=== PATIENT | male | born 1970 | race Two or more races ===

== ENCOUNTER 2018-02-22 17:01 | Inpatient (IN) | payer OTHER ==
[~2018-02-22] VITALS: Ht 182.9 cm; Wt 111.7 kg
[2018-02-22 18:38] LABS: Basophils # (auto) 0.1 uL; Basophils % (auto) 0.6 % (0.0-2.0); Eosinophils # (auto) 0.4 uL; Eosinophils % (auto) 4.2 % (0.0-7.0); Hematocrit 44.5 % (41.0-53.0); Hemoglobin 15.6 g/dL (13.5-17.5); Lymphocytes # (auto) 2.3 uL; Lymphocytes % (auto) 25.5 % (10.0-50.0); Mean Corpuscular Hemoglobin 30.6 pg (28.0-32.0); Mean Corpuscular Volume 87.4 fL (80.0-100.0); Monocytes # (auto) 0.6 uL; Monocytes % (auto) 7.2 % (0.0-12.0); Neutrophils # (auto) 5.7 uL; Neutrophils % (auto) 62.5 % (37.0-80.0); Nucleated Red Blood Cells % 0.1 %; Platelet Count (auto) 267 10^3/uL (140-450); Red Blood Cells 5.09 10^6/uL (4.5-5.90); Red Cell Distribution Width 13.7 % (11.8-14.3); White Blood Cell 9.1 10^3/uL (4.4-10.8)
[2018-02-22 18:57] LABS: Potassium 3.7 mmol/L (3.5-5.1)
[2018-02-22 19:00] LABS: Albumin 3.6 g/dL (3.4-5.0); BUN/Creatinine Ratio 13.1; Calcium 8.7 mg/dL (8.5-10.1)
[2018-02-22 19:04] LABS: Bilirubin, Total 1.1 mg/dL (0.2-1.0); Total Protein 7.2 g/dL (6.4-8.2)
[2018-02-22] MEDS ORDERED: PANTOPRAZOLE 40 MG/10 ML VIAL IV STA (19:04)
[2018-02-22] MEDS ORDERED: SODIUM CHLORIDE 0.9% 500 ML IVB ONE (19:04)
[2018-02-22 19:08] LABS: Urine Bacteria NONE SEEN /hpf (None Seen); Urine Blood Negative /uL (Negative); Urine Mucus FEW (None Seen); Urine Specific Gravity 1.018 (1.001-1.035); Urine WBC 4 /hpf (0 - 3)
[2018-02-22] MEDS ORDERED: ONDANSETRON HCL 4 MG/2 ML VIAL IV ONE (19:15)
[2018-02-22] MEDS ORDERED: MORPHINE SULFATE 4 MG/ML SYR/VIAL IV ONE (19:15)
[2018-02-22] MEDS ORDERED: ACETAMINOPHEN 500 MG TAB PO PRN (21:00)
[2018-02-22] MEDS: SODIUM CHLORIDE 0.9% 1,000 ML IV SCH (21:19)
[2018-02-22] MEDS ORDERED: METF1000 PO (23:14)
[2018-02-22] MEDS ORDERED: INSLANTI SC (23:14)
[2018-02-22] MEDS: MORPHINE SULF INJ 2 MG/ML SYRINGE 1ML IV PRN (23:18)
[2018-02-22] MEDS: ONDANSETRON HCL 4 MG/2 ML VIAL IV PRN (23:18)
[2018-02-23] VITALS (8 sets, daily range): BP systolic 126–139; BP diastolic 69–90
[2018-02-23] MEDS ORDERED: DEXTROSE (50%) 50ML SYRG IV PRN (00:15)
[2018-02-23 05:40] LABS: Basophils # (auto) 0.1 uL; Basophils % (auto) 0.7 % (0.0-2.0); Eosinophils # (auto) 0.4 uL; Eosinophils % (auto) 4.8 % (0.0-7.0); Hematocrit 42.6 % (41.0-53.0); Lymphocytes # (auto) 2.4 uL; Lymphocytes % (auto) 30.1 % (10.0-50.0); Mean Corpuscular Hemoglobin 30.8 pg (28.0-32.0); Mean Corpuscular Hgb Conc. 35.3 g/dL (32.0-36.0); Mean Corpuscular Volume 87.5 fL (80.0-100.0); Monocytes # (auto) 0.5 uL; Monocytes % (auto) 6.7 % (0.0-12.0); Neutrophils # (auto) 4.5 uL; Neutrophils % (auto) 57.7 % (37.0-80.0); Nucleated Red Blood Cells % 0.1 %; Platelet Count (auto) 211 10^3/uL (140-450); Red Blood Cells 4.87 10^6/uL (4.5-5.90); Red Cell Distribution Width 13.9 % (11.8-14.3); White Blood Cell 7.8 10^3/uL (4.4-10.8)
[2018-02-23 05:47] LABS: BUN/Creatinine Ratio 11.7; Calcium 8.1 mg/dL (8.5-10.1); Potassium 4.7 mmol/L (3.5-5.1)
[2018-02-23] MEDS: InsuLIN REG 1unit/0.01ml Soln (100units/ml) SC SCH ×3 (06:00→17:40)
[2018-02-23] MEDS: ACCU-CHEK COMFORT CURVE STRIP VI SCH ×3 (06:09→17:39)
[2018-02-23] MEDS: MORPHINE SULF INJ 2 MG/ML SYRINGE 1ML IV PRN ×3 (06:20→20:15)
[2018-02-23] MEDS: ONDANSETRON HCL 4 MG/2 ML VIAL IV PRN (08:57)
[2018-02-23] MEDS ORDERED: PANTOPRAZOLE 40 MG/10 ML VIAL IV ONE (11:15)
[2018-02-23] MEDS: SODIUM CHLORIDE 0.9% 1,000 ML IV SCH ×2 (20:43→23:40)
[2018-02-24] MEDS: ACCU-CHEK COMFORT CURVE STRIP VI SCH ×4 (00:06→18:15)
[2018-02-24 05:08] VITALS: BP 131/87
[2018-02-24] MEDS: InsuLIN REG 1unit/0.01ml Soln (100units/ml) SC SCH ×4 (06:00→18:16)
[2018-02-24 06:49] LABS: Basophils # (auto) 0 uL; Basophils % (auto) 0.6 % (0.0-2.0); Eosinophils # (auto) 0.3 uL; Eosinophils % (auto) 3.5 % (0.0-7.0); Hemoglobin 15.8 g/dL (13.5-17.5); Lymphocytes # (auto) 1.6 uL; Lymphocytes % (auto) 20.6 % (10.0-50.0); Mean Corpuscular Hemoglobin 30.7 pg (28.0-32.0); Mean Corpuscular Hgb Conc. 35.2 g/dL (32.0-36.0); Mean Corpuscular Volume 87.2 fL (80.0-100.0); Monocytes # (auto) 0.5 uL; Monocytes % (auto) 6.5 % (0.0-12.0); Neutrophils # (auto) 5.4 uL; Neutrophils % (auto) 68.8 % (37.0-80.0); Nucleated Red Blood Cells % 0.1 %; Platelet Count (auto) 231 10^3/uL (140-450); Red Blood Cells 5.16 10^6/uL (4.5-5.90); Red Cell Distribution Width 13.4 % (11.8-14.3); White Blood Cell 7.8 10^3/uL (4.4-10.8)
[2018-02-24 07:05] LABS: Albumin 3.5 g/dL (3.4-5.0); BUN/Creatinine Ratio 9.3; Bilirubin, Total 1.8 mg/dL (0.2-1.0); Calcium 8.2 mg/dL (8.5-10.1); Total Protein 6.9 g/dL (6.4-8.2)
[2018-02-24 07:12] LABS: INR 1.04 (0.9-1.15); Partial Thromboplastin Time 26.7 sec (23.78-33.04); Prothrombin Time 11.1 sec (9.27-12.13)
[2018-02-24 09:00] VITALS: BP 138/92
[2018-02-24] MEDS: PANTOPRAZOLE 40 MG/10 ML VIAL IV SCH (10:08)
[2018-02-24] MEDS: LISINOPRIL 5 MG TAB PO SCH (10:09)
[2018-02-24] MEDS: MORPHINE SULF INJ 2 MG/ML SYRINGE 1ML IV PRN ×2 (10:10→14:35)
[2018-02-24 13:00] VITALS: BP 148/89
[2018-02-24] MEDS ORDERED: METOPROLOL TARTRATE 25 MG TAB PO ONE (13:15)
[2018-02-24] MEDS: PIPERACILLIN-TAZOB 3.375GM 100 ML IV SCH ×2 (14:26→18:05)
[2018-02-24 17:00] VITALS: BP 154/104
[2018-02-24] MEDS: SODIUM CHLORIDE 0.9% 1,000 ML IV SCH (17:12)
[2018-02-24 22:00] VITALS: BP 133/80
[2018-02-24] MEDS: METOPROLOL TARTRATE 25 MG TAB PO SCH (22:00)
[2018-02-24] MEDS: ATORVASTATIN 20 MG TAB PO SCH (22:00)
[2018-02-25] MEDS: ACCU-CHEK COMFORT CURVE STRIP VI SCH ×4 (00:19→17:34)
[2018-02-25] MEDS: PIPERACILLIN-TAZOB 3.375GM 100 ML IV SCH ×4 (00:19→18:06)
[2018-02-25] MEDS: SODIUM CHLORIDE 0.9% 1,000 ML IV SCH ×2 (03:56→21:58)
[2018-02-25 05:00] VITALS: BP 128/76
[2018-02-25] MEDS: InsuLIN REG 1unit/0.01ml Soln (100units/ml) SC SCH ×4 (05:53→18:08)
[2018-02-25] MEDS ORDERED: fentaNYL CITRATE 100 MCG/2 ML VL ONE ×2 (07:23→10:22)
[2018-02-25] MEDS ORDERED: SODIUM CHLORIDE LOCK 10 ML ONE (07:23)
[2018-02-25] MEDS ORDERED: MEPERIDINE HCL (50 MG/ML) 1 ML VIAL ONE (07:23)
[2018-02-25] MEDS ORDERED: PROPOFOL 10 MG/ML 20 ML IV ONE ×2 (07:23→09:23)
[2018-02-25] MEDS ORDERED: ROCURONIUM 10MG/ML 10ML VIAL IV ONE (07:23)
[2018-02-25] MEDS ORDERED: MIDAZOLAM HCL 1MG/1ML-2 ML VIAL ONE (07:23)
[2018-02-25] MEDS ORDERED: ONDANSETRON HCL 4 MG/2 ML VIAL ONE (07:23)
[2018-02-25 07:24] LABS: BUN/Creatinine Ratio 9.4; Calcium 8.3 mg/dL (8.5-10.1); Potassium 3.8 mmol/L (3.5-5.1)
[2018-02-25 07:33] LABS: Basophils # (auto) 0.1 uL; Basophils % (auto) 0.8 % (0.0-2.0); Eosinophils # (auto) 0.2 uL; Eosinophils % (auto) 3.3 % (0.0-7.0); Hemoglobin 15.9 g/dL (13.5-17.5); Lymphocytes # (auto) 1.3 uL; Lymphocytes % (auto) 17.1 % (10.0-50.0); Mean Corpuscular Hemoglobin 30.6 pg (28.0-32.0); Mean Corpuscular Hgb Conc. 35.4 g/dL (32.0-36.0); Mean Corpuscular Volume 86.5 fL (80.0-100.0); Monocytes # (auto) 0.6 uL; Monocytes % (auto) 8.4 % (0.0-12.0); Neutrophils # (auto) 5.3 uL; Neutrophils % (auto) 70.4 % (37.0-80.0); Nucleated Red Blood Cells % 0.1 %; Platelet Count (auto) 237 10^3/uL (140-450); Red Cell Distribution Width 13.6 % (11.8-14.3); White Blood Cell 7.5 10^3/uL (4.4-10.8)
[2018-02-25 07:48] VITALS: BP 150/84
[2018-02-25] MEDS ORDERED: METOCLOPRAMIDE HCL 5MG/ml INJ 2ml VIAL IV ONE (09:00)
[2018-02-25] MEDS ORDERED: ACCU-CHEK COMFORT CURVE STRIP VI ONE (09:00)
[2018-02-25] MEDS ORDERED: HYDROmorphone HCL 2 MG/ML VL IV PRN (09:00)
[2018-02-25] MEDS ORDERED: KETOROLAC TROMETH 30 MG/ML 1ML VIAL IV ONE (09:00)
[2018-02-25] MEDS ORDERED: BUPIVACAINE 0.25% INJ 50ML VIAL ONE (09:08)
[2018-02-25 09:46] VITALS: BP 150/84
[2018-02-25] MEDS: METOPROLOL TARTRATE 25 MG TAB PO SCH ×2 (10:00→21:57)
[2018-02-25] MEDS ORDERED: KETOROLAC TROMETH 60MG/2ML VIAL IM ONE (10:16)
[2018-02-25] MEDS ORDERED: GLYCOPYRROLATE 0.2 MG/ML 1ML VIAL ONE (10:16)
[2018-02-25] MEDS ORDERED: NEOSTIGMINE 1 MG/ML INJ (10mg/10ML VIAL) ONE (10:16)
[2018-02-25] MEDS: LISINOPRIL 5 MG TAB PO SCH (12:06)
[2018-02-25] MEDS: PANTOPRAZOLE 40 MG/10 ML VIAL IV SCH (12:07)
[2018-02-25 13:00] VITALS: BP 133/91
[2018-02-25] MEDS: MORPHINE SULF INJ 2 MG/ML SYRINGE 1ML IV PRN ×2 (13:38→21:56)
[2018-02-25] MEDS: HYDROcodone-ACET 5/325MG TAB PO PRN (16:58)
[2018-02-25 17:05] VITALS: BP 138/87
[2018-02-25] MEDS: ATORVASTATIN 20 MG TAB PO SCH (21:57)
[2018-02-25 22:00] VITALS: BP 138/86
[2018-02-26] MEDS: PIPERACILLIN-TAZOB 3.375GM 100 ML IV SCH ×4 (00:25→17:46)
[2018-02-26] MEDS: ACCU-CHEK COMFORT CURVE STRIP VI SCH ×4 (00:25→17:46)
[2018-02-26] MEDS: InsuLIN REG 1unit/0.01ml Soln (100units/ml) SC SCH ×4 (00:26→17:46)
[2018-02-26 04:59] VITALS: BP 141/72
[2018-02-26] MEDS: MORPHINE SULF INJ 2 MG/ML SYRINGE 1ML IV PRN ×3 (05:07→19:47)
[2018-02-26 07:06] LABS: Basophils # (auto) 0 uL; Basophils % (auto) 0.3 % (0.0-2.0); Eosinophils # (auto) 0.1 uL; Eosinophils % (auto) 0.4 % (0.0-7.0); Hematocrit 44.7 % (41.0-53.0); Hemoglobin 15.9 g/dL (13.5-17.5); Lymphocytes # (auto) 1.4 uL; Lymphocytes % (auto) 10.7 % (10.0-50.0); Mean Corpuscular Hemoglobin 30.8 pg (28.0-32.0); Mean Corpuscular Hgb Conc. 35.5 g/dL (32.0-36.0); Mean Corpuscular Volume 86.5 fL (80.0-100.0); Monocytes # (auto) 1.1 uL; Monocytes % (auto) 8.1 % (0.0-12.0); Neutrophils # (auto) 10.6 uL; Neutrophils % (auto) 80.5 % (37.0-80.0); Nucleated Red Blood Cells % 0.1 %; Platelet Count (auto) 277 10^3/uL (140-450); Red Blood Cells 5.16 10^6/uL (4.5-5.90); Red Cell Distribution Width 13.6 % (11.8-14.3); White Blood Cell 13.1 10^3/uL (4.4-10.8)
[2018-02-26] MEDS: SODIUM CHLORIDE 0.9% 1,000 ML IV SCH ×2 (07:33→17:47)
[2018-02-26 07:34] LABS: Albumin 3.4 g/dL (3.4-5.0); BUN/Creatinine Ratio 11.4; Bilirubin, Total 1.9 mg/dL (0.2-1.0); Calcium 8.5 mg/dL (8.5-10.1); Potassium 3.7 mmol/L (3.5-5.1); Total Protein 7.1 g/dL (6.4-8.2)
[2018-02-26 09:14] VITALS: BP 138/78
[2018-02-26] MEDS: METOPROLOL TARTRATE 25 MG TAB PO SCH ×2 (10:54→22:05)
[2018-02-26] MEDS: LISINOPRIL 5 MG TAB PO SCH (10:55)
[2018-02-26] MEDS: PANTOPRAZOLE 40 MG/10 ML VIAL IV SCH (10:55)
[2018-02-26 12:00] VITALS: BP_SYST 143; BP_SYST 145; BP_DIAS 78; BP_DIAS 84
[2018-02-26 16:00] VITALS: BP 149/89
[2018-02-26] MEDS ORDERED: LACTULOSE 20Gm/30ML SOLN PO PRN (18:15)
[2018-02-26] MEDS: DOCUSATE SOD 100 MG CAP PO SCH (18:58)
[2018-02-26 22:00] VITALS: BP 151/90
[2018-02-26] MEDS: ATORVASTATIN 20 MG TAB PO SCH (22:05)
[2018-02-27] MEDS: PIPERACILLIN-TAZOB 3.375GM 100 ML IV SCH ×2 (00:22→06:14)
[2018-02-27] MEDS: ACCU-CHEK COMFORT CURVE STRIP VI SCH ×4 (00:22→18:10)
[2018-02-27] MEDS: InsuLIN REG 1unit/0.01ml Soln (100units/ml) SC SCH ×4 (00:22→18:00)
[2018-02-27] MEDS: MORPHINE SULF INJ 2 MG/ML SYRINGE 1ML IV PRN ×2 (04:50→10:49)
[2018-02-27 05:00] VITALS: BP 155/105
[2018-02-27 07:03] LABS: Basophils # (auto) 0.1 uL; Basophils % (auto) 0.7 % (0.0-2.0); Eosinophils # (auto) 0.3 uL; Eosinophils % (auto) 3.5 % (0.0-7.0); Hematocrit 44.6 % (41.0-53.0); Hemoglobin 15.7 g/dL (13.5-17.5); Lymphocytes # (auto) 1.6 uL; Lymphocytes % (auto) 17.3 % (10.0-50.0); Mean Corpuscular Hemoglobin 30.9 pg (28.0-32.0); Mean Corpuscular Hgb Conc. 35.3 g/dL (32.0-36.0); Mean Corpuscular Volume 87.7 fL (80.0-100.0); Monocytes # (auto) 0.8 uL; Monocytes % (auto) 8.4 % (0.0-12.0); Neutrophils # (auto) 6.4 uL; Neutrophils % (auto) 70.1 % (37.0-80.0); Nucleated Red Blood Cells % 0.1 %; Platelet Count (auto) 241 10^3/uL (140-450); Red Blood Cells 5.09 10^6/uL (4.5-5.90); Red Cell Distribution Width 13.6 % (11.8-14.3); White Blood Cell 9.2 10^3/uL (4.4-10.8)
[2018-02-27 07:22] LABS: Albumin 3.4 g/dL (3.4-5.0); Calcium 8.5 mg/dL (8.5-10.1)
[2018-02-27 07:24] LABS: Bilirubin, Total 2.2 mg/dL (0.2-1.0); Total Protein 6.8 g/dL (6.4-8.2)
[2018-02-27] MEDS: ONDANSETRON HCL 4 MG/2 ML VIAL IV PRN (08:14)
[2018-02-27 08:30] VITALS: BP 150/74
[2018-02-27] MEDS ORDERED: PROMETHAZINE HCL 25 MG/ML 1ML IV ONE (10:45)
[2018-02-27] MEDS: PANTOPRAZOLE 40 MG/10 ML VIAL IV SCH (10:59)
[2018-02-27] MEDS: SODIUM CHLORIDE 0.9% 1,000 ML IV SCH ×2 (10:59→21:00)
[2018-02-27] MEDS ORDERED: LACTULOSE 20Gm/30ML SOLN PO ONE (11:45)
[2018-02-27] MEDS ORDERED: PROMETHAZINE HCL 25 MG/ML 1ML IV PRN (11:45)
[2018-02-27] MEDS: LISINOPRIL 5 MG TAB PO SCH (12:28)
[2018-02-27] MEDS: DOCUSATE SOD 100 MG CAP PO SCH (12:32)
[2018-02-27] MEDS: METOPROLOL TARTRATE 25 MG TAB PO SCH ×2 (12:32→22:00)
[2018-02-27] MEDS: LEVOFLOXACIN 500MG 100 ML IV SCH (12:33)
[2018-02-27 13:00] VITALS: BP 158/89
[2018-02-27] MEDS ORDERED: METOCLOPRAMIDE HCL 5MG/ml INJ 2ml VIAL IV PRN (13:30)
[2018-02-27] MEDS ORDERED: diphenhdrAMINE HCL 50 MG/1 ML VL IV ONE (13:30)
[2018-02-27] MEDS: metroNIDAZOLE 500MG/100ML 100 ML IV SCH ×2 (14:26→20:30)
[2018-02-27 17:11] VITALS: BP 95/71
[2018-02-27] MEDS ORDERED: LORazepam 2MG/ML-1ML VIAL IV ONE (17:30)
[2018-02-27 22:52] VITALS: BP 164/99
[2018-02-28] MEDS: ACCU-CHEK COMFORT CURVE STRIP VI SCH ×4 (00:19→19:17)
[2018-02-28 05:39] VITALS: BP 144/66
[2018-02-28] MEDS: InsuLIN REG 1unit/0.01ml Soln (100units/ml) SC SCH ×4 (05:43→19:30)
[2018-02-28] MEDS: metroNIDAZOLE 500MG/100ML 100 ML IV SCH (05:43)
[2018-02-28 08:00] VITALS: BP 117/69
[2018-02-28] MEDS: LISINOPRIL 5 MG TAB PO SCH (12:43)
[2018-02-28] MEDS: LEVOFLOXACIN 500MG 100 ML IV SCH (12:43)
[2018-02-28] MEDS: DOCUSATE SOD 100 MG CAP PO SCH (12:43)
[2018-02-28] MEDS: METOPROLOL TARTRATE 25 MG TAB PO SCH ×2 (12:43→23:20)
[2018-02-28] MEDS: PANTOPRAZOLE 40 MG/10 ML VIAL IV SCH (12:44)
[2018-02-28] MEDS: SODIUM CHLORIDE 0.9% 1,000 ML IV SCH (12:53)
[2018-02-28 13:03] VITALS: BP 140/78
[2018-02-28] MEDS: metroNIDAZOLE 500 MG TAB PO SCH ×2 (15:49→23:20)
[2018-02-28 17:00] VITALS: BP 127/77
[2018-02-28 21:30] VITALS: BP 145/81
[2018-02-28] MEDS ORDERED: diphenhdrAMINE HCL 50 MG/1 ML VL ONE (23:14)
[2018-03-01] MEDS: InsuLIN REG 1unit/0.01ml Soln (100units/ml) SC SCH ×4 (00:39→17:37)
[2018-03-01] MEDS: SODIUM CHLORIDE 0.9% 1,000 ML IV SCH ×4 (00:40→22:08)
[2018-03-01] MEDS: ACCU-CHEK COMFORT CURVE STRIP VI SCH ×4 (00:40→17:37)
[2018-03-01] MEDS: MORPHINE SULF INJ 2 MG/ML SYRINGE 1ML IV PRN ×3 (02:42→12:01)
[2018-03-01] MEDS ORDERED: KETOROLAC TROMETH 30 MG/ML 1ML VIAL IV ONE (04:00)
[2018-03-01 05:00] VITALS: BP 164/96
[2018-03-01] MEDS: HYDROcodone-ACET 5/325MG TAB PO PRN (06:06)
[2018-03-01] MEDS: metroNIDAZOLE 500 MG TAB PO SCH ×3 (06:06→21:52)
[2018-03-01 08:00] VITALS: BP 147/90
[2018-03-01 09:00] VITALS: BP 147/96
[2018-03-01] MEDS: PANTOPRAZOLE 40 MG/10 ML VIAL IV SCH (09:31)
[2018-03-01] MEDS: LEVOFLOXACIN 500MG 100 ML IV SCH (09:31)
[2018-03-01] MEDS: LISINOPRIL 5 MG TAB PO SCH (09:31)
[2018-03-01] MEDS: DOCUSATE SOD 100 MG CAP PO SCH (09:32)
[2018-03-01] MEDS: METOPROLOL TARTRATE 25 MG TAB PO SCH ×3 (09:32→22:55)
[2018-03-01 13:00] VITALS: BP 136/78
[2018-03-01 17:00] VITALS: BP 149/85
[2018-03-01] MEDS ORDERED: LORazepam 2MG/ML-1ML VIAL IV PRN (19:30)
[2018-03-01] MEDS ORDERED: TEMAZEPAM 15 MG CAP PO ONE (21:00)
[2018-03-01 21:41] LABS: Basophils # (auto) 0.1 uL; Basophils % (auto) 0.9 % (0.0-2.0); Eosinophils # (auto) 0.4 uL; Eosinophils % (auto) 3.6 % (0.0-7.0); Hematocrit 45.9 % (41.0-53.0); Lymphocytes # (auto) 2.1 uL; Lymphocytes % (auto) 18.9 % (10.0-50.0); Mean Corpuscular Hemoglobin 30.1 pg (28.0-32.0); Mean Corpuscular Hgb Conc. 34.8 g/dL (32.0-36.0); Mean Corpuscular Volume 86.6 fL (80.0-100.0); Monocytes # (auto) 0.9 uL; Monocytes % (auto) 7.9 % (0.0-12.0); Neutrophils # (auto) 7.5 uL; Neutrophils % (auto) 68.7 % (37.0-80.0); Nucleated Red Blood Cells % 0.1 %; Platelet Count (auto) 260 10^3/uL (140-450); Red Cell Distribution Width 13.9 % (11.8-14.3); White Blood Cell 10.9 10^3/uL (4.4-10.8)
[2018-03-01 22:03] LABS: Alanine Aminotransferase 50 U/L (16-61); Albumin 3.7 g/dL (3.4-5.0); Alkaline Phosphatase 58 U/L (45-117); Anion Gap 5 (5-15); Aspartate Aminotransferase 18 U/L (15-37); BUN/Creatinine Ratio 13.5; Bilirubin, Total 1.9 mg/dL (0.2-1.0); Blood Urea Nitrogen 13 mg/dL (7-18); Calcium 8.1 mg/dL (8.5-10.1); Carbon Dioxide 24 mmol/L (21-32); Chloride 107 mmol/L (98-107); GFR African American 108 mL/min; GFR Non-African American 89 mL/min; Glucose 212 mg/dL (74-106); Potassium 3.4 mmol/L (3.5-5.1); Sodium 136 mmol/L (136-145); Total Protein 7.5 g/dL (6.4-8.2)
[2018-03-02] MEDS: InsuLIN REG 1unit/0.01ml Soln (100units/ml) SC SCH ×2 (00:47→06:56)
[2018-03-02] MEDS: ACCU-CHEK COMFORT CURVE STRIP VI SCH ×2 (00:54→06:51)
[2018-03-02] MEDS: HYDROcodone-ACET 5/325MG TAB PO PRN (01:01)
[2018-03-02 05:52] VITALS: BP 109/72
[2018-03-02] MEDS: metroNIDAZOLE 500 MG TAB PO SCH (06:51)
[2018-03-02 09:00] VITALS: BP 141/88
[2018-03-02] MEDS: DOCUSATE SOD 100 MG CAP PO SCH (10:13)
[2018-03-02] MEDS: LISINOPRIL 5 MG TAB PO SCH (10:22)
[2018-03-02] MEDS: PANTOPRAZOLE 40 MG/10 ML VIAL IV SCH (10:23)
[2018-03-02] MEDS: LEVOFLOXACIN 500MG 100 ML IV SCH (10:23)
[2018-03-02 13:00] VITALS: BP 147/89
[2018-03-02 13:17] VITALS: BP 147/89
== END 2018-03-02 14:10 | disposition home or self-care (01) | DRG 417 ==
LOC: ER 17:10 → OVERFLOW 17:11 → TELE-CENTR 22:45 → CENTRAL 22:57
PROVIDERS: ADMIT Nurse Practitioner Family; ATTEND Internal Medicine
PROC: 0D9W3ZZ Drainage of Peritoneum, Percutaneous Approach (ICD-10-PCS; 2018-02-25)
PROC: 0FT44ZZ Resection of Gallbladder, Percutaneous Endoscopic Approach (ICD-10-PCS; principal; 2018-02-25 09:31)
DX: K80.00 Calculus of gallbladder with acute cholecystitis without obstruction (principal); K65.1 Peritoneal abscess; K65.3 Choleperitonitis; E11.9 Type 2 diabetes mellitus without complications; E66.01 Morbid (severe) obesity due to excess calories; I10 Essential (primary) hypertension; Z79.4 Long term (current) use of insulin; Z82.3 Family history of stroke; Z82.49 Family history of ischemic heart disease and other diseases of the circulatory system; Z83.3 Family history of diabetes mellitus; Z87.891 Personal history of nicotine dependence; Z79.899 Other long term (current) drug therapy; Z68.33 Body mass index [BMI] 33.0-33.9, adult
CPT/HCPCS: 36415; 74018; 74176; 76705; 80048; 80053; 80061; 81001; 82150; 82962; 83036; 83690; 83735; 84484; 85025; 85610; 85730; 86850; 86900; 86901; 93005; 93306; 94761; 96361; 96374; 96375; 96376; C9113; J1815; J1885; J1956; J2250; J2405; J2543; J2704; J3490

== ENCOUNTER 2018-03-10 06:40 | Inpatient (IN) | payer OTHER ==
[~2018-03-10] VITALS: Ht 182.9 cm; Wt 87.4 kg
[~2018-03-10 06:40] MED LIST: INSLANTI SC; METF1000 PO
[2018-03-10 08:46] LABS: Urine Bacteria NONE SEEN /hpf (None Seen); Urine Blood Negative /uL (Negative); Urine Mucus FEW (None Seen); Urine Specific Gravity 1.026 (1.001-1.035); Urine WBC 3 /hpf (0 - 3)
[2018-03-10 09:28] LABS: Basophils # (auto) 0.1 uL; Basophils % (auto) 0.6 % (0.0-2.0); Eosinophils # (auto) 0 uL; Eosinophils % (auto) 0.4 % (0.0-7.0); Hematocrit 45.7 % (41.0-53.0); Hemoglobin 15.8 g/dL (13.5-17.5); Lymphocytes # (auto) 0.7 uL; Lymphocytes % (auto) 6.5 % (10.0-50.0); Mean Corpuscular Hemoglobin 30.4 pg (28.0-32.0); Mean Corpuscular Hgb Conc. 34.6 g/dL (32.0-36.0); Monocytes # (auto) 0.4 uL; Monocytes % (auto) 3.9 % (0.0-12.0); Neutrophils # (auto) 9.8 uL; Neutrophils % (auto) 88.6 % (37.0-80.0); Platelet Count (auto) 253 10^3/uL (140-450); Red Cell Distribution Width 13.7 % (11.8-14.3)
[2018-03-10 09:41] LABS: Albumin 3.7 g/dL (3.4-5.0); BUN/Creatinine Ratio 18.2; Calcium 8.7 mg/dL (8.5-10.1)
[2018-03-10 09:43] LABS: Bilirubin, Total 1.5 mg/dL (0.2-1.0); Total Protein 7.5 g/dL (6.4-8.2)
[2018-03-10] MEDS ORDERED: METOCLOPRAMIDE HCL 5MG/ml INJ 2ml VIAL IV ONE ×2 (10:00→12:30)
[2018-03-10] MEDS ORDERED: MORPHINE SULFATE 4 MG/ML SYR/VIAL IV ONE ×2 (10:00→12:30)
[2018-03-10] MEDS ORDERED: TEMAZEPAM 15 MG CAP PO PRN (13:15)
[2018-03-10] MEDS ORDERED: LORazepam 0.5 MG TAB PO PRN (13:15)
[2018-03-10] MEDS ORDERED: cefTRIAXone 1GM/10ml IVPUSH 10 ML IV ONE (13:15)
[2018-03-10] MEDS ORDERED: MORPHINE SULF INJ 2 MG/ML SYRINGE 1ML IV PRN (13:15)
[2018-03-10] MEDS ORDERED: PANTOPRAZOLE 40 MG/10 ML VIAL IV ONE (13:15)
[2018-03-10] MEDS ORDERED: MORPHINE SULFATE 4 MG/ML SYR/VIAL IV PRN (13:15)
[2018-03-10] MEDS ORDERED: ONDANSETRON HCL 4 MG/2 ML VIAL IV PRN (13:15)
[2018-03-10] MEDS ORDERED: DEXTROSE (50%) 50ML SYRG IV PRN (13:15)
[2018-03-10] MEDS ORDERED: NITROGLYCERIN 0.4 MG SL TAB SL PRN (13:15)
[2018-03-10] MEDS ORDERED: IOHEXOL 300 MG/ML 100ML BOTTLE IJ ONE (13:22)
[2018-03-10] MEDS: SODIUM CHLORIDE 0.9% 1,000 ML IV SCH (14:15)
[2018-03-10] MEDS: metroNIDAZOLE 500MG/100ML 100 ML IV SCH ×2 (14:18→22:09)
[2018-03-10 17:00] VITALS: BP 134/78
[2018-03-10] MEDS: InsuLIN REG 1unit/0.01ml Soln (100units/ml) SC SCH (18:31)
[2018-03-10] MEDS: ACCU-CHEK COMFORT CURVE STRIP VI SCH (18:31)
[2018-03-10 20:00] VITALS: BP 122/79
[2018-03-10 21:57] VITALS: BP 122/79
[2018-03-10] MEDS: MORPHINE SULF INJ 2 MG/ML SYRINGE 1ML IV PRN (22:09)
[2018-03-11] MEDS: ACCU-CHEK COMFORT CURVE STRIP VI SCH ×5 (00:39→23:37)
[2018-03-11] MEDS: SODIUM CHLORIDE 0.9% 1,000 ML IV SCH ×5 (05:15→23:37)
[2018-03-11] MEDS: metroNIDAZOLE 500MG/100ML 100 ML IV SCH ×3 (05:15→21:19)
[2018-03-11] MEDS: InsuLIN REG 1unit/0.01ml Soln (100units/ml) SC SCH ×5 (05:35→23:40)
[2018-03-11 05:45] VITALS: BP 109/71
[2018-03-11 06:54] LABS: Basophils # (auto) 0.1 uL; Basophils % (auto) 0.7 % (0.0-2.0); Eosinophils # (auto) 0.4 uL; Hematocrit 43.9 % (41.0-53.0); Hemoglobin 15.1 g/dL (13.5-17.5); Lymphocytes # (auto) 1.6 uL; Lymphocytes % (auto) 16.6 % (10.0-50.0); Mean Corpuscular Hemoglobin 30.4 pg (28.0-32.0); Mean Corpuscular Hgb Conc. 34.4 g/dL (32.0-36.0); Mean Corpuscular Volume 88.2 fL (80.0-100.0); Monocytes # (auto) 0.6 uL; Monocytes % (auto) 6.1 % (0.0-12.0); Neutrophils # (auto) 7.2 uL; Neutrophils % (auto) 72.6 % (37.0-80.0); Nucleated Red Blood Cells % 0.1 %; Platelet Count (auto) 246 10^3/uL (140-450); Red Blood Cells 4.97 10^6/uL (4.5-5.90); Red Cell Distribution Width 13.6 % (11.8-14.3); White Blood Cell 9.9 10^3/uL (4.4-10.8)
[2018-03-11 07:19] LABS: Cholesterol 96 mg/dL (< 200); HDL Cholesterol 28 mg/dL (40-59); LDL Cholesterol 72 mg/dL (< 100); Triglycerides 130 mg/dL (< 150)
[2018-03-11 07:25] LABS: Albumin 3.3 g/dL (3.4-5.0); BUN/Creatinine Ratio 18.9; Calcium 8.3 mg/dL (8.5-10.1)
[2018-03-11 07:27] LABS: Bilirubin, Total 1.8 mg/dL (0.2-1.0); Total Protein 6.2 g/dL (6.4-8.2)
[2018-03-11 08:00] VITALS: BP 109/71
[2018-03-11 08:39] VITALS: BP 140/88
[2018-03-11] MEDS: cefTRIAXone 1GM/10ml IVPUSH 10 ML IV SCH (09:29)
[2018-03-11] MEDS: PANTOPRAZOLE 40 MG/10 ML VIAL IV SCH (09:29)
[2018-03-11 13:00] VITALS: BP 135/80
[2018-03-11] MEDS: MORPHINE SULF INJ 2 MG/ML SYRINGE 1ML IV PRN ×2 (15:20→20:38)
[2018-03-11 17:00] VITALS: BP 130/84
[2018-03-11 21:34] LABS: Amphetamine Screen, Urine NEGATIVE (NEGATIVE); Barbiturate Scree,Urine NEGATIVE (NEGATIVE); Benzodiazephine Screen, Urine NEGATIVE (NEGATIVE); Cannabinoid Screen, Urine POSITIVE (NEGATIVE); Cocaine Screen, Urine NEGATIVE (NEGATIVE); Opiate Scree,Urine POSITIVE (NEGATIVE); Phencyclidine Screen, Urine NEGATIVE (NEGATIVE)
[2018-03-11 22:00] VITALS: BP 153/93
[2018-03-12] MEDS: SODIUM CHLORIDE 0.9% 1,000 ML IV SCH ×3 (05:47→16:07)
[2018-03-12] MEDS: metroNIDAZOLE 500MG/100ML 100 ML IV SCH ×3 (05:47→21:09)
[2018-03-12] MEDS: ACCU-CHEK COMFORT CURVE STRIP VI SCH ×4 (05:48→23:50)
[2018-03-12] MEDS: InsuLIN REG 1unit/0.01ml Soln (100units/ml) SC SCH ×4 (05:48→23:51)
[2018-03-12 05:55] VITALS: BP 140/81
[2018-03-12 06:28] LABS: Basophils # (auto) 0.1 uL; Basophils % (auto) 0.8 % (0.0-2.0); Eosinophils # (auto) 0.4 uL; Eosinophils % (auto) 4.7 % (0.0-7.0); Hematocrit 42.4 % (41.0-53.0); Hemoglobin 14.7 g/dL (13.5-17.5); Lymphocytes # (auto) 1.4 uL; Lymphocytes % (auto) 17.9 % (10.0-50.0); Mean Corpuscular Hemoglobin 30.6 pg (28.0-32.0); Mean Corpuscular Hgb Conc. 34.6 g/dL (32.0-36.0); Mean Corpuscular Volume 88.4 fL (80.0-100.0); Monocytes # (auto) 0.4 uL; Monocytes % (auto) 5.8 % (0.0-12.0); Neutrophils # (auto) 5.4 uL; Neutrophils % (auto) 70.8 % (37.0-80.0); Platelet Count (auto) 223 10^3/uL (140-450); Red Cell Distribution Width 13.3 % (11.8-14.3); White Blood Cell 7.7 10^3/uL (4.4-10.8)
[2018-03-12 06:36] LABS: BUN/Creatinine Ratio 18.1; Calcium 7.7 mg/dL (8.5-10.1); Potassium 3.8 mmol/L (3.5-5.1)
[2018-03-12 06:39] LABS: Bilirubin, Total 1.6 mg/dL (0.2-1.0); Total Protein 6.3 g/dL (6.4-8.2)
[2018-03-12 08:39] VITALS: BP 149/92
[2018-03-12] MEDS: PANTOPRAZOLE 40 MG/10 ML VIAL IV SCH (09:17)
[2018-03-12] MEDS: cefTRIAXone 1GM/10ml IVPUSH 10 ML IV SCH (09:18)
[2018-03-12 13:00] VITALS: BP 140/81
[2018-03-12 17:00] VITALS: BP 142/85
[2018-03-12 21:56] VITALS: BP 139/96
[2018-03-13] MEDS: SODIUM CHLORIDE 0.9% 1,000 ML IV SCH ×2 (03:37→10:39)
[2018-03-13 05:00] VITALS: BP 141/81
[2018-03-13] MEDS: metroNIDAZOLE 500MG/100ML 100 ML IV SCH (05:47)
[2018-03-13] MEDS: InsuLIN REG 1unit/0.01ml Soln (100units/ml) SC SCH (05:47)
[2018-03-13] MEDS: ACCU-CHEK COMFORT CURVE STRIP VI SCH (05:47)
[2018-03-13 06:22] LABS: Basophils # (auto) 0.1 uL; Basophils % (auto) 0.7 % (0.0-2.0); Eosinophils # (auto) 0.4 uL; Eosinophils % (auto) 4.8 % (0.0-7.0); Hematocrit 41.6 % (41.0-53.0); Hemoglobin 14.9 g/dL (13.5-17.5); Lymphocytes # (auto) 1.4 uL; Lymphocytes % (auto) 18.1 % (10.0-50.0); Mean Corpuscular Hemoglobin 31.2 pg (28.0-32.0); Mean Corpuscular Hgb Conc. 35.8 g/dL (32.0-36.0); Mean Corpuscular Volume 87.3 fL (80.0-100.0); Monocytes # (auto) 0.5 uL; Monocytes % (auto) 7.1 % (0.0-12.0); Neutrophils # (auto) 5.3 uL; Neutrophils % (auto) 69.3 % (37.0-80.0); Nucleated Red Blood Cells % 0.1 %; Platelet Count (auto) 226 10^3/uL (140-450); Red Blood Cells 4.76 10^6/uL (4.5-5.90); Red Cell Distribution Width 13.2 % (11.8-14.3); White Blood Cell 7.7 10^3/uL (4.4-10.8)
[2018-03-13 06:40] LABS: Albumin 3.1 g/dL (3.4-5.0); BUN/Creatinine Ratio 12.2; Potassium 3.8 mmol/L (3.5-5.1)
[2018-03-13 06:42] LABS: Bilirubin, Total 1.6 mg/dL (0.2-1.0); Total Protein 6.3 g/dL (6.4-8.2)
[2018-03-13 08:45] VITALS: BP 149/91
[2018-03-13] MEDS: PANTOPRAZOLE 40 MG/10 ML VIAL IV SCH (10:39)
[2018-03-13] MEDS: cefTRIAXone 1GM/10ml IVPUSH 10 ML IV SCH (10:39)
== END 2018-03-13 10:43 | disposition home or self-care (01) | DRG 439 ==
LOC: ER 06:40 → TELE 06:41 → TELE-CENTR 17:00 → CENTRAL 03-12 12:59
PROVIDERS: ADMIT Internal Medicine; ATTEND Family Medicine
DX: K85.90 Acute pancreatitis without necrosis or infection, unspecified (principal); R65.10 Systemic inflammatory response syndrome (SIRS) of non-infectious origin without acute organ dysfunction; R74.8 Abnormal levels of other serum enzymes; F41.9 Anxiety disorder, unspecified; G47.00 Insomnia, unspecified; I10 Essential (primary) hypertension; E11.65 Type 2 diabetes mellitus with hyperglycemia; E66.9 Obesity, unspecified; Z68.26 Body mass index [BMI] 26.0-26.9, adult; Z87.891 Personal history of nicotine dependence; Z83.3 Family history of diabetes mellitus; Z90.49 Acquired absence of other specified parts of digestive tract; Z79.4 Long term (current) use of insulin; Z79.899 Other long term (current) drug therapy; Z87.81 Personal history of (healed) traumatic fracture; Z82.3 Family history of stroke; Z82.49 Family history of ischemic heart disease and other diseases of the circulatory system
CPT/HCPCS: 36415; 74176; 74177; 80053; 80061; 80307; 80320; 81001; 82150; 82962; 83036; 83690; 85025; 85652; 87081; 96361; 96374; 96375; A6257; C9113; J0696; J1815; J3490

== ENCOUNTER 2018-04-06 05:24 | Emergency (ER) | payer OTHER ==
[~2018-04-06] VITALS: Ht 182.9 cm; Wt 113.4 kg
[2018-04-06] MEDS ORDERED: SODIUM CHLORIDE 0.9% 1,000 ML IVB ONE (06:47)
[2018-04-06] MEDS ORDERED: ONDANSETRON HCL 4 MG/2 ML VIAL IV ONE (07:00)
[2018-04-06] MEDS ORDERED: MORPHINE SULFATE 4 MG/ML SYR/VIAL IV ONE (07:00)
[2018-04-06] MEDS ORDERED: PROMETHAZINE HCL 25 MG/ML 1ML IV PRN (07:00)
[2018-04-06 07:13] LABS: Basophils # (auto) 0 uL; Basophils % (auto) 0.5 % (0.0-2.0); Eosinophils # (auto) 0.1 uL; Eosinophils % (auto) 0.8 % (0.0-7.0); Hematocrit 45.9 % (41.0-53.0); Lymphocytes % (auto) 10.7 % (10.0-50.0); Mean Corpuscular Hemoglobin 30.5 pg (28.0-32.0); Mean Corpuscular Hgb Conc. 34.9 g/dL (32.0-36.0); Mean Corpuscular Volume 87.5 fL (80.0-100.0); Monocytes # (auto) 0.4 uL; Monocytes % (auto) 4.5 % (0.0-12.0); Neutrophils # (auto) 7.8 uL; Neutrophils % (auto) 83.5 % (37.0-80.0); Nucleated Red Blood Cells % 0.1 %; Platelet Count (auto) 266 10^3/uL (140-450); Red Blood Cells 5.25 10^6/uL (4.5-5.90); Red Cell Distribution Width 13.6 % (11.8-14.3); White Blood Cell 9.3 10^3/uL (4.4-10.8)
[2018-04-06 07:20] LABS: Calcium 8.7 mg/dL (8.5-10.1); Chloride 105 mmol/L (98-107); Potassium 3.3 mmol/L (3.5-5.1); Sodium 139 mmol/L (136-145)
[2018-04-06 07:23] LABS: Alanine Aminotransferase 39 U/L (16-61); Amylase 74 U/L (25-115); Anion Gap 14 (5-15); Aspartate Aminotransferase 15 U/L (15-37); Blood Urea Nitrogen 12 mg/dL (7-18); Carbon Dioxide 20 mmol/L (21-32); GFR African American 113 mL/min; GFR Non-African American 93 mL/min; Glucose 237 mg/dL (74-106); Lipase 177 U/L (73-393); Magnesium 2.1 mg/dL (1.6-2.6)
[2018-04-06 07:29] LABS: Alkaline Phosphatase 62 U/L (45-117); Bilirubin, Total 1.4 mg/dL (0.2-1.0); Total Protein 7.5 g/dL (6.4-8.2)
[2018-04-06 07:36] LABS: Urine Bacteria NONE SEEN /hpf (None Seen); Urine Blood Negative /uL (Negative); Urine Specific Gravity 1.021 (1.001-1.035); Urine WBC 2 /hpf (0 - 3)
[2018-04-06 07:55] LABS: Alcohol, Urine < 3.0 mg/dL (0-5); Amphetamine Screen, Urine NEGATIVE (NEGATIVE); Barbiturate Scree,Urine NEGATIVE (NEGATIVE); Benzodiazephine Screen, Urine NEGATIVE (NEGATIVE); Cannabinoid Screen, Urine POSITIVE (NEGATIVE); Cocaine Screen, Urine NEGATIVE (NEGATIVE); Opiate Scree,Urine NEGATIVE (NEGATIVE); Phencyclidine Screen, Urine NEGATIVE (NEGATIVE)
[2018-04-06] MEDS ORDERED: PROMETHAZINE HCL 25 MG/ML 1ML IV ONE (09:45)
[2018-04-06] MEDS ORDERED: POTASSIUM EFFERVESENT TAB 25 MEQ PO ONE (11:00)
[2018-04-06] MEDS ORDERED: SODIUM CHLORIDE 0.9% 1,000 ML IV ONE (11:30)
[2018-04-06] MEDS ORDERED: PROCHLORPERAZINE EDISYLATE 5 MG/ML 2ML VIAL IV ONE (11:30)
[2018-04-06 15:57] VITALS: BP 129/75
== END 2018-04-06 16:13 | disposition home or self-care (01) ==
LOC: ER 05:29
DX: K46.9 Unspecified abdominal hernia without obstruction or gangrene (principal); E87.6 Hypokalemia; E11.65 Type 2 diabetes mellitus with hyperglycemia; F12.10 Cannabis abuse, uncomplicated; E11.9 Type 2 diabetes mellitus without complications; I10 Essential (primary) hypertension; Z90.49 Acquired absence of other specified parts of digestive tract
CPT/HCPCS: 36415; 71046; 74176; 80053; 80307; 81001; 82150; 83690; 83735; 84484; 85025; 93005; 96361; 96374; 96375; 99285; J0780; J2270; J2550; J7030

== ENCOUNTER → 2020-01-31 | Emergency (ER) | payer MEDICAID ==
[~2020-01-31] VITALS: Ht 182.9 cm; Wt 113.4 kg
[~2020-01-31] MED LIST changes: +HYDROmorphone HCL 2 MG/ML VL IV ONE; +LISI-275 PO; +METOCLOPRAMIDE HCL 5MG/ml INJ 2ml VIAL IV ONE; +MORPHINE SULFATE 4 MG/ML SYR/VIAL IV ONE; +ONDANSETRON HCL 4 MG/2 ML VIAL IV ONE; +SODIUM CHLORIDE 0.9% 1,000 ML IV ONE; +SODIUM CHLORIDE 0.9% 1,000 ML IVB ONE
[2020-01-31 03:57] LABS: Basophils # (auto) 0.1 10 ^3/uL (0-0.2); Basophils % (auto) 0.6 % (0.0-2.0); Eosinophils # (auto) 0.2 10 ^3/uL (0-0.8); Eosinophils % (auto) 1.5 % (0.0-7.0); Hematocrit 43.2 % (41.0-53.0); Hemoglobin 15.3 g/dL (13.5-17.5); Lymphocytes # (auto) 1.1 10 ^3/uL (0.4-5.4); Lymphocytes % (auto) 10.1 % (10.0-50.0); Mean Corpuscular Hemoglobin 30.7 pg (28.0-32.0); Mean Corpuscular Hgb Conc. 35.4 g/dL (32.0-36.0); Mean Corpuscular Volume 86.7 fL (80.0-100.0); Monocytes # (auto) 0.6 10 ^3/uL (0-1.3); Monocytes % (auto) 5.3 % (0.0-12.0); Neutrophils # (auto) 9.1 10 ^3/uL (1.6-8.6); Neutrophils % (auto) 82.5 % (37.0-80.0); Platelet Count (auto) 254 10^3/uL (140-450); Red Blood Cells 4.98 10^6/uL (4.5-5.90); Red Cell Distribution Width 13.6 % (11.8-14.3)
[2020-01-31 04:06] LABS: Urine Bacteria FEW /hpf (None Seen); Urine Blood Negative /uL (Negative); Urine Mucus FEW (None Seen); Urine Specific Gravity 1.014 (1.001-1.035); Urine WBC 1 /hpf (0 - 3)
[2020-01-31 04:11] LABS: INR 1.04 (0.9-1.15); Partial Thromboplastin Time 25.8 sec (23.0-31.2)
[2020-01-31 04:21] LABS: Alanine Aminotransferase 35 U/L (16-61); Albumin 3.7 g/dL (3.4-5.0); Amylase 58 U/L (25-115); Anion Gap 9 (5-15); Aspartate Aminotransferase 17 U/L (15-37); BUN/Creatinine Ratio 12.8; Blood Urea Nitrogen 11 mg/dL (7-18); Calcium 8.5 mg/dL (8.5-10.1); Carbon Dioxide 22 mmol/L (21-32); Chloride 107 mmol/L (98-107); GFR African American 121 mL/min; GFR Non-African American 100 mL/min; Glucose 205 mg/dL (74-106); Lipase 101 U/L (73-393); Magnesium 2.1 mg/dL (1.6-2.6); Potassium 3.1 mmol/L (3.5-5.1); Sodium 138 mmol/L (136-145)
[2020-01-31 04:26] LABS: Alkaline Phosphatase 65 U/L (45-117); Bilirubin, Total 1.6 mg/dL (0.2-1.0); Total Protein 7.5 g/dL (6.4-8.2)
[2020-01-31 04:30] LABS: Alcohol, Urine < 3.0 mg/dL (0-10); Amphetamine Screen, Urine NEGATIVE (NEGATIVE); Barbiturate Scree,Urine NEGATIVE (NEGATIVE); Benzodiazephine Screen, Urine POSITIVE (NEGATIVE); Cannabinoid Screen, Urine POSITIVE (NEGATIVE); Cocaine Screen, Urine NEGATIVE (NEGATIVE); Phencyclidine Screen, Urine NEGATIVE (NEGATIVE)
[2020-01-31 04:37] LABS: Opiate Scree,Urine NEGATIVE (NEGATIVE)
[2020-01-31 07:30] VITALS: BP 154/93
== END | disposition home or self-care (01) ==
LOC: EDUNIT# 02:42 → EDBD 02:53 → ER 02:53
DX: K85.90 Acute pancreatitis without necrosis or infection, unspecified (principal); I10 Essential (primary) hypertension; E11.9 Type 2 diabetes mellitus without complications
CPT/HCPCS: 36415; 74176; 80053; 80307; 80320; 81001; 82150; 83605; 83690; 83735; 84484; 85025; 85610; 85730; 96361; 96374; 96375; 99284; J1170; J2270; J2405; J2765; J7030

== ENCOUNTER 2020-06-07 05:30 | Emergency (ER) | payer MEDICAID ==
[~2020-06-07] VITALS: Ht 182.9 cm; Wt 104.3 kg
[~2020-06-07 05:30] MED LIST changes: -HYDROmorphone HCL 2 MG/ML VL IV ONE; -METOCLOPRAMIDE HCL 5MG/ml INJ 2ml VIAL IV ONE; -MORPHINE SULFATE 4 MG/ML SYR/VIAL IV ONE; -ONDANSETRON HCL 4 MG/2 ML VIAL IV ONE; -SODIUM CHLORIDE 0.9% 1,000 ML IV ONE; -SODIUM CHLORIDE 0.9% 1,000 ML IVB ONE
[2020-06-07 05:41] VITALS: BP 183/102
[2020-06-07 06:52] LABS: Basophils # (auto) 0.1 10 ^3/uL (0-0.2); Basophils % (auto) 0.9 % (0.0-2.0); Eosinophils # (auto) 0.3 10 ^3/uL (0-0.8); Eosinophils % (auto) 1.9 % (0.0-7.0); Hematocrit 46.9 % (41.0-53.0); Hemoglobin 16.3 g/dL (13.5-17.5); Lymphocytes % (auto) 7.2 % (10.0-50.0); Mean Corpuscular Hemoglobin 30.2 pg (28.0-32.0); Mean Corpuscular Hgb Conc. 34.8 g/dL (32.0-36.0); Mean Corpuscular Volume 86.7 fL (80.0-100.0); Monocytes # (auto) 0.6 10 ^3/uL (0-1.3); Monocytes % (auto) 4.9 % (0.0-12.0); Neutrophils # (auto) 11.3 10 ^3/uL (1.6-8.6); Neutrophils % (auto) 85.1 % (37.0-80.0); Nucleated Red Blood Cells % 0.1 %; Platelet Count (auto) 287 10^3/uL (140-450); Red Cell Distribution Width 13.5 % (11.8-14.3); White Blood Cell 13.3 10^3/uL (4.4-10.8)
[2020-06-07 07:10] LABS: Chloride 105 mmol/L (98-107); Potassium 3.3 mmol/L (3.5-5.1); Sodium 137 mmol/L (136-145)
[2020-06-07 07:18] LABS: Alanine Aminotransferase 34 U/L (16-61); Albumin 3.9 g/dL (3.4-5.0); Alkaline Phosphatase 80 U/L (45-117); Anion Gap 10 (5-15); Aspartate Aminotransferase 16 U/L (15-37); BUN/Creatinine Ratio 10.1; Blood Urea Nitrogen 10 mg/dL (7-18); Calcium 9.1 mg/dL (8.5-10.1); Carbon Dioxide 22 mmol/L (21-32); GFR African American 103 mL/min; GFR Non-African American 85 mL/min; Glucose 258 mg/dL (74-106); Lipase 162 U/L (73-393); Total Protein 7.6 g/dL (6.4-8.2)
[2020-06-07] MEDS ORDERED: POTASSIUM CHL 20MEQ/100ML 100 ML IV ONE (07:30)
[2020-06-07] MEDS ORDERED: MORPHINE SULFATE 4 MG/ML SYR/VIAL IV ONE (07:30)
[2020-06-07] MEDS ORDERED: ONDANSETRON HCL 4 MG/2 ML VIAL IV ONE (07:30)
== END 2020-06-07 19:11 | disposition left against medical advice (07) ==
LOC: EDBD 05:30 → ER 05:30
DX: K52.9 Noninfective gastroenteritis and colitis, unspecified (principal); E87.6 Hypokalemia; F12.10 Cannabis abuse, uncomplicated; E11.9 Type 2 diabetes mellitus without complications; I10 Essential (primary) hypertension; Z90.49 Acquired absence of other specified parts of digestive tract
CPT/HCPCS: 36415; 74176; 80053; 83690; 84484; 85025; 93005

== ENCOUNTER 2020-12-02 16:52 | Emergency (ER) | payer MEDICAID ==
[~2020-12-02] VITALS: Ht 182.9 cm; Wt 108.9 kg
[2020-12-02] MEDS ORDERED: PROCHLORPERAZINE EDISYLATE 5 MG/ML 2ML VIAL IV ONE (17:15)
[2020-12-02] MEDS ORDERED: PANTOPRAZOLE 40 MG/10 ML VIAL INJ IV ONE (17:15)
[2020-12-02 17:39] LABS: Basophils # (auto) 0.1 10 ^3/uL (0-0.2); Basophils % (auto) 0.9 % (0.0-2.0); Eosinophils # (auto) 0.3 10 ^3/uL (0-0.8); Eosinophils % (auto) 3.4 % (0.0-7.0); Hematocrit 43.5 % (41.0-53.0); Hemoglobin 15.2 g/dL (13.5-17.5); Lymphocytes % (auto) 19.4 % (10.0-50.0); Mean Corpuscular Hemoglobin 30.3 pg (28.0-32.0); Mean Corpuscular Volume 86.5 fL (80.0-100.0); Monocytes # (auto) 0.7 10 ^3/uL (0-1.3); Monocytes % (auto) 6.6 % (0.0-12.0); Neutrophils # (auto) 7.1 10 ^3/uL (1.6-8.6); Neutrophils % (auto) 69.7 % (37.0-80.0); Platelet Count (auto) 277 10^3/uL (140-450); Red Blood Cells 5.03 10^6/uL (4.5-5.90); Red Cell Distribution Width 13.7 % (11.8-14.3); White Blood Cell 10.2 10^3/uL (4.4-10.8)
[2020-12-02 17:46] VITALS: BP 141/93
[2020-12-02 17:59] LABS: Albumin 3.8 g/dL (3.4-5.0); Anion Gap 8 (5-15); Blood Urea Nitrogen 13 mg/dL (7-18); Calcium 8.9 mg/dL (8.5-10.1); Carbon Dioxide 27 mmol/L (21-32); Chloride 104 mmol/L (98-107); Glucose 187 mg/dL (74-106); Magnesium 2.1 mg/dL (1.6-2.6); Potassium 3.6 mmol/L (3.5-5.1); Sodium 139 mmol/L (136-145)
[2020-12-02 18:01] LABS: Alanine Aminotransferase 34 U/L (16-61); Aspartate Aminotransferase 14 U/L (15-37); BUN/Creatinine Ratio 13.4; GFR African American 105 mL/min; GFR Non-African American 87 mL/min
[2020-12-02 18:06] LABS: Alkaline Phosphatase 70 U/L (45-117); Bilirubin, Total 1.6 mg/dL (0.2-1.0); Total Protein 7.6 g/dL (6.4-8.2)
== END 2020-12-02 18:35 | disposition home or self-care (01) ==
LOC: ER 16:52
DX: R07.89 Other chest pain (principal); F12.188 Cannabis abuse with other cannabis-induced disorder; E11.9 Type 2 diabetes mellitus without complications; I10 Essential (primary) hypertension; Z90.49 Acquired absence of other specified parts of digestive tract; Z87.891 Personal history of nicotine dependence
CPT/HCPCS: 36415; 71046; 80053; 83735; 84484; 85025; 93005; 96374; 96375; 99285; C9113; J0780

== ENCOUNTER 2020-12-13 04:43 | Emergency (ER) | payer MEDICAID ==
[~2020-12-13] VITALS: Ht 182.9 cm; Wt 99.8 kg
[2020-12-13 06:03] LABS: Urine Amorphous Crystal FEW /hpf (None Seen); Urine Bacteria FEW /hpf (None Seen); Urine Blood Negative /uL (Negative); Urine Specific Gravity 1.013 (1.001-1.035); Urine WBC 3 /hpf (0 - 3)
[2020-12-13 06:34] LABS: Basophils # (auto) 0.1 10 ^3/uL (0-0.2); Basophils % (auto) 0.9 % (0.0-2.0); Eosinophils # (auto) 0.1 10 ^3/uL (0-0.8); Eosinophils % (auto) 0.8 % (0.0-7.0); Hematocrit 44.5 % (41.0-53.0); Hemoglobin 15.5 g/dL (13.5-17.5); Lymphocytes # (auto) 1.3 10 ^3/uL (0.4-5.4); Lymphocytes % (auto) 8.2 % (10.0-50.0); Mean Corpuscular Hemoglobin 30.2 pg (28.0-32.0); Mean Corpuscular Hgb Conc. 34.8 g/dL (32.0-36.0); Mean Corpuscular Volume 86.6 fL (80.0-100.0); Monocytes # (auto) 0.7 10 ^3/uL (0-1.3); Monocytes % (auto) 4.7 % (0.0-12.0); Neutrophils # (auto) 13.2 10 ^3/uL (1.6-8.6); Neutrophils % (auto) 85.4 % (37.0-80.0); Platelet Count (auto) 269 10^3/uL (140-450); Red Blood Cells 5.14 10^6/uL (4.5-5.90); Red Cell Distribution Width 13.6 % (11.8-14.3); White Blood Cell 15.5 10^3/uL (4.4-10.8)
[2020-12-13 06:38] LABS: Alcohol, Urine < 3.0 mg/dL (0-10)
[2020-12-13] MEDS ORDERED: MORPHINE SULFATE 4 MG/ML SYR/VIAL IV ONE (06:45)
[2020-12-13] MEDS ORDERED: SODIUM CHLORIDE 0.9% 1,000 ML IV ONE ×3 (06:45→08:00)
[2020-12-13] MEDS ORDERED: PROCHLORPERAZINE EDISYLATE 5 MG/ML 2ML VIAL IV ONE (06:45)
[2020-12-13 06:50] LABS: Albumin 3.9 g/dL (3.4-5.0); Calcium 9.3 mg/dL (8.5-10.1); Potassium 3.8 mmol/L (3.5-5.1)
[2020-12-13 06:55] LABS: Bilirubin, Total 0.9 mg/dL (0.2-1.0); Total Protein 7.8 g/dL (6.4-8.2)
[2020-12-13 07:11] LABS: Amphetamine Screen, Urine NEGATIVE (NEGATIVE); Barbiturate Scree,Urine NEGATIVE (NEGATIVE); Benzodiazephine Screen, Urine NEGATIVE (NEGATIVE); Cannabinoid Screen, Urine POSITIVE (NEGATIVE); Cocaine Screen, Urine NEGATIVE (NEGATIVE); Opiate Scree,Urine NEGATIVE (NEGATIVE); Phencyclidine Screen, Urine NEGATIVE (NEGATIVE)
[2020-12-13] MEDS ORDERED: KETOROLAC TROMETH 30 MG/ML 1ML VIAL IV ONE (08:00)
[2020-12-13 08:36] VITALS: BP 143/69
== END 2020-12-13 09:18 | disposition home or self-care (01) ==
LOC: ER 04:43 → EDBD 04:43 → ER 09:18
DX: F12.99 Cannabis use, unspecified with unspecified cannabis-induced disorder (principal); R10.84 Generalized abdominal pain; R11.2 Nausea with vomiting, unspecified; I10 Essential (primary) hypertension; Z90.49 Acquired absence of other specified parts of digestive tract; Z87.891 Personal history of nicotine dependence; Z79.4 Long term (current) use of insulin; Z79.899 Other long term (current) drug therapy
CPT/HCPCS: 36415; 71045; 74176; 80053; 80307; 81001; 83690; 85025; 96361; 96374; 96375; 99285; J0780; J1885; J2270; J7030